=== PATIENT | female | born 1955 | race Caucasian/White ===

== ENCOUNTER 2018-05-20 15:21 | Outpatient (REF) | payer MEDICARE, SELFPAY ==
[2018-05-20 21:26] LABS: TSH 0.45 uIU/mL (0.358-3.74)
== END 2018-05-20 15:41 ==
LOC: NCHCN 15:21
PROVIDERS: PCP Internal Medicine; Visit Provider Internal Medicine
DX: E03.9 Hypothyroidism, unspecified (principal)
CPT/HCPCS: 84443

== ENCOUNTER 2018-09-11 18:49 | Outpatient (REF) | payer MEDICARE, SELFPAY ==
[2018-09-11 19:49] LABS: Anion Gap 10.6 mmol/L (3-11); BUN 18 mg/dL (7-18); CO2 26.4 mmol/L (21.0-32.0); CREATININE 1.22 mg/dL (0.55-1.02); Calcium 9.3 mg/dL (8.5-10.1); Chloride 98 mmol/L (98-107); Estimated GFR 44.23 (mL/min/1.73m2); Glucose 92 mg/dL (70-100); Potassium 4.5 mmol/L (3.5-5.1); Sodium 135 mmol/L (136-145)
== END 2018-09-11 19:09 ==
LOC: NCHCN 18:49
PROVIDERS: PCP Internal Medicine; Visit Provider Internal Medicine
DX: E87.5 Hyperkalemia (principal); E87.1 Hypo-osmolality and hyponatremia
CPT/HCPCS: 80048

== ENCOUNTER 2019-09-14 15:27 | Outpatient (REF) | payer MEDICARE, SELFPAY ==
[2019-09-14 19:40] LABS: Albumin 4.1 g/dL (3.4-5.0); Anion Gap 9.3 mmol/L (3-11); BUN 25 mg/dL (7-18); CO2 24.7 mmol/L (21.0-32.0); CREATININE 1.56 mg/dL (0.55-1.02); Calcium 8.9 mg/dL (8.5-10.1); Chloride 94 mmol/L (98-107); Estimated GFR 33.21 (mL/min/1.73m2); Glucose 140 mg/dL (74-106); PHOSPHORUS 4.4 mg/dL (2.6-4.7); Potassium 4.4 mmol/L (3.5-5.1); Sodium 128 mmol/L (136-145)
[2019-09-14 19:50] LABS: PROTEIN 9.1 mg/dL
[2019-09-14 19:56] LABS: COMMENT (LAB VIEW ONLY) 68.22 mg/dL; Prot/Crea Ur Ratio 0.13
[2019-09-16 14:08] LABS: Albumin 62.3 % (55.8-66.1); Total Protein 6.9 g/dL (6.3-8.2)
== END 2019-09-14 15:47 ==
LOC: NCHCN 15:27
PROVIDERS: PCP Internal Medicine; Visit Provider Internal Medicine
DX: N18.3 Chronic kidney disease, stage 3 (moderate) (principal)
CPT/HCPCS: 80069; 84156; 84166; 86335; 82565; 84165

== ENCOUNTER 2019-09-16 16:06 | Outpatient (REF) | payer MEDICARE, SELFPAY ==
[2019-09-20 16:03] LABS: Albumin, Urine % 12.6 % ((See Note)); Globulins, Urine % 87.4 %; Immunotyping, Urine (See Note); Total Protein Urine 10 mg/dL (See Note)
== END 2019-09-16 16:26 ==
LOC: LBN 16:06
PROVIDERS: PCP Internal Medicine; Visit Provider Internal Medicine
DX: N18.3 Chronic kidney disease, stage 3 (moderate) (principal)
CPT/HCPCS: 84156; 84166; 86335

== ENCOUNTER 2019-12-27 09:10 | Outpatient (REF) | payer MEDICARE, SELFPAY ==
[2019-12-30 19:35] LABS: Patient Race White; SARS-CoV-2 RNA Undetected (Undetected); SARS-CoV-2 Specimen Source Nasal
== END 2019-12-27 09:30 ==
LOC: NCHCN 09:10
PROVIDERS: PCP Internal Medicine; Visit Provider Internal Medicine
DX: Z20.828 Contact with and (suspected) exposure to other viral communicable diseases (principal)
CPT/HCPCS: U0003

== ENCOUNTER 2020-01-19 19:47 | Outpatient (REF) | payer MEDICARE, SELFPAY ==
[2020-01-24 21:16] LABS: Patient Race White; SARS-CoV-2 RNA Undetected (Undetected); SARS-CoV-2 Specimen Source Nasal
== END 2020-01-19 20:07 ==
LOC: NCHCN 19:47
PROVIDERS: PCP Internal Medicine; Visit Provider Internal Medicine
DX: J01.10 Acute frontal sinusitis, unspecified (principal); Z20.828 Contact with and (suspected) exposure to other viral communicable diseases
CPT/HCPCS: U0003

== ENCOUNTER 2020-02-15 20:07 | Outpatient (REF) | payer MEDICARE, SELFPAY ==
[2020-02-15 19:30] LABS: HCT 45.4 % (36.0-46.0); HGB 14.5 g/dL (11.2-15.7); MCH 31.5 pg (27.0-33.0); MCHC 31.9 % (32.0-36.0); MCV 98.5 fL (80-95); MPV 11.2 fL (8.0-11.0); Platelet Count 241 10^3/uL (130-400); RBC 4.61 10^6/uL (3.93-5.22); RDW 13.5 % (11.7-14.6); RDW-SD 49.1 fL; WBC 4.29 10^3/uL (4.4-10.8)
[2020-02-15 19:47] LABS: ALT 11 U/L (14-59); AST 15 U/L (15-37); Albumin 4.1 g/dL (3.4-5.0); Alkaline Phosphatase 62 U/L (46-116); Anion Gap 9.5 mmol/L (3-11); BUN 17 mg/dL (7-18); Bilirubin, Total 0.8 mg/dL (0.2-1.0); CO2 26.5 mmol/L (21.0-32.0); Calcium 9.1 mg/dL (8.5-10.1); Chloride 102 mmol/L (98-107); Estimated GFR 37.62 (mL/min/1.73m2); Ferritin 29 ng/mL (8-252); Glucose 108 mg/dL (74-106); Potassium 4.1 mmol/L (3.5-5.1); Sodium 138 mmol/L (136-145); Total Protein 6.7 g/dL (6.4-8.2)
== END 2020-02-15 20:27 ==
LOC: NCHCN 20:07
PROVIDERS: PCP Internal Medicine; Visit Provider Internal Medicine
DX: G25.81 Restless legs syndrome (principal)
CPT/HCPCS: 80053; 85027; 82728

== ENCOUNTER 2020-04-07 17:39 | Outpatient (REF) | payer MEDICARE, SELFPAY ==
[2020-04-07 16:13] LABS: Anion Gap 10.2 mmol/L (3-11); BUN 18 mg/dL (7-18); CO2 27.8 mmol/L (21.0-32.0); CREATININE 1.38 mg/dL (0.55-1.02); Calcium 8.8 mg/dL (8.5-10.1); Chloride 98 mmol/L (98-107); Estimated GFR 38.14 (mL/min/1.73m2); Glucose 109 mg/dL (74-106); Potassium 4.2 mmol/L (3.5-5.1); Sodium 136 mmol/L (136-145)
[2020-04-07 16:16] LABS: INR 2.4 (0.9-1.1); Prothrombin Time 23.5 sec (9.3-11.0)
== END 2020-04-07 17:59 ==
LOC: NCHCN 17:39
PROVIDERS: PCP Internal Medicine; Visit Provider Internal Medicine
DX: I24.0 Acute coronary thrombosis not resulting in myocardial infarction (principal); Z79.01 Long term (current) use of anticoagulants; I51.3 Intracardiac thrombosis, not elsewhere classified
CPT/HCPCS: 80048; 85610

== ENCOUNTER 2020-04-19 14:56 | Outpatient (REF) | payer MEDICARE, SELFPAY ==
--- OUTSIDE RECORDS SUMMARY | 2020-04-19 14:59 | XMS_ITS ---
:1955 Author Care Team Providers Name Role Phone TITA JUAN MD Primary Care Provider [phone] SUSAN KELLY MD General Surgeon [phone] Allergies Code Code System Name Reaction Severity Status Onset 2670 RxNorm Codeine Itching ? Active ? Timentin ? ? Active ? Medications Name Status Start Date Stop Date ? ? Aspir-81 Active ? Not available celecoxib 200 mg capsule Active ? Not kaitlin ilable Entresto 49 mg-51 mg tablet Active ? Not available erythromycin 5 mg/gram (0.5 %) Completed ? 0 05/12/2018 eye ointment furosemide 20 mg tablet Active ? Not avai lable gabapentin 300 mg capsule Completed ? 2019 hydrocodone 5 mg-acetaminophen Active ? N ot available 325 mg tablet hydromorphone 2 mg tablet Completed ? 2019 levothyroxine 125 mcg tablet Active ? Not available losartan 50 mg tablet Completed 06/16/2013 05/07/2016 1 (one) Tablet Tablet: qd - daily metoprolol succinate ER 100 mg Active ? N ot available tablet,extended release 24 hr nitrofurantoin macrocrystal 100 Completed ? 05/12/2018 mg capsule omeprazole 20 mg capsule,delayed Completed ? 05/17/2019 release oxybutynin chloride ER 10 mg Completed ? 04/2019 tablet,extended release 24 hr Pacerone 400 mg tablet Active ? Not avail able prednisone 20 mg tablet Completed ? 05/12/19 19 simvastatin 20 mg tablet Active ? Not kaitlin ilable spironolactone 25 mg tablet Active ? Not available sulfamethoxazole 800 Completed ? 05/12/2018 mg-trimethoprim 160 mg tablet sumatriptan 100 mg tablet Active ? Not av ailable Problems Name Status Onset Date Source ? History of Radiofrequency Ablation Active 09/15/2015 ? Operation for Arrhythmia Replacement of Left Knee Joint Active 11/15/2017 ? Cardiac Pacemaker Procedure Active 04/27/2018 ? Hypothyroidism Active 05/12/2018 ? Migraine Active 05/12/2018 ? Cardiomyopathy Active 05/12/2018 ? History of Malignant Lymphoma Active 05/12/2018 ? Long-term Drug Therapy Active ? History Gynecologic Examination Unknown ? History Procedures Date Name Performed by ? 02/24/2019 Colonoscopy Information not avai lable Notes: diverticulosis. 08/18/2018 Orthopedic Surgery Information not avai lable Notes: right knee replacement 04/27/2018 Pacemaker/Defibrillator Information not available 11/15/2017 Orthopedic Surgery Information not avai lable Notes: Left knee replacement 03/17/2005 Orthopedic Surgery Information not avai lable Notes: broke hand had pins put in 03/17/2003 Laparoscopy Diagnostic Information not a vailable ? Heart Surgery Information not avai lable Notes: Ablation 10/02/2015, Cardiac ca th 07/2015 ? Tubal Ligation Information not avai lable Notes: 1976 05/14/2018 MAMMO, Screening, Tomosynthesis, [facility] Radiology (Internal) Bilateral [address] [place] [address] (Work Place) 05/17/2019 MAMMO, Screening, Tomosynthesis, [facility] Radiology (Internal) Bilateral [address] [place] [address] (Work Place) Results Lab Results Date Name Specimen Result Interpretation Description Value Range Status Address ? 05/17/2019 Pap Test, MISC ? Hpv see ? Final [facility], report [facility] (Interna l): [address] ? ? MISC ? Pap see ? Final [facility] report [facility] (Internal) : [address] ? ? MISC ? Report (see ? Final [facility] ntry below) [facility] (Internal) : [address] Past Encounters 05/17/2019 Screening Mammography; Routine Gynecolog ic Examination Done Renetta Foreman MD: [address] [place] [phone], Ph. Social History Tobacco Smoking Status Never Smoker Vaccine List Vaccine Type influenza, seasonal, injectable 12/15/2006 rubella Td (adult), adsorbed 02/05/2006 Plan of Care Reminders Provider Appointments None ? ? recorded. Lab None ? ? recorded. Referral None ? ? recorded. Procedures None ? ? recorded. Surgeries None ? ? recorded. Imaging None ? ? recorded. Vitals 05/17/2019 01:30PM [facility] 20 Height Weight BMI Blood Pressure 170.18 cm 107.05 kg 37 kg/m2 110/60 mm[Hg] 05/14/2018 03:40PM [facility] 20 Height Weight BMI Blood Pressure 170.18 cm 99.74 kg 34.4 kg/m2 104/60 mm[Hg] 05/09/2017 Height Weight Blood Pressure 170.82 cm 105.19 kg 120/68 mm[Hg] 05/07/2016 Height Weight Blood Pressure 170.18 cm 98.38 kg 96/46 mm[Hg] 05/22/2015 Height Weight Blood Pressure 168.91 cm 100.52 kg 108/78 mm[Hg] 05/20/2014 Height Weight Blood Pressure 170.82 cm 103.46 kg 104/58 mm[Hg] 05/11/2013 Height Weight Blood Pressure 172.72 cm 103.56 kg 112/60 mm[Hg] 05/06/2012 Height Weight Blood Pressure 172.72 cm 104.05 kg 112/64 mm[Hg] 05/02/2011 Weight Blood Pressure 102.06 kg 122/64 mm[Hg] 04/19/2010 Weight Blood Pressure 102.51 kg 110/70 mm[Hg] 04/13/2009 Weight Blood Pressure 97.98 kg 122/70 mm[Hg] 04/07/2008 Weight Blood Pressure 98.88 kg 100/66 mm[Hg] 02/11/2007 Weight Blood Pressure 93.44 kg 122/70 mm[Hg] 02/05/2006 Height Weight Blood Pressure 172.72 cm 97.98 kg 122/70 mm[Hg] 02/05/2005 Height Weight Blood Pressure 172.72 cm 90.72 kg 98/60 mm[Hg] 02/01/2004 Height Weight Blood Pressure 172.72 cm 76.66 kg 116/56 mm[Hg]
[2020-04-19 16:52] LABS: Prothrombin Time 56.5 sec (9.3-11.0)
[2020-04-19 16:58] LABS: INR 5.9 (0.9-1.1)
== END 2020-04-19 14:57 | disposition home or self-care (01) ==
LOC: NCHCN 14:56
PROVIDERS: PCP Internal Medicine; Visit Provider Internal Medicine
DX: Z79.01 Long term (current) use of anticoagulants (principal); I51.3 Intracardiac thrombosis, not elsewhere classified
CPT/HCPCS: 85610

== ENCOUNTER 2020-04-21 14:38 | Outpatient (REF) | payer MEDICARE, SELFPAY ==
[2020-04-21 16:41] LABS: INR 5.7 (0.9-1.1)
[2020-04-21 19:43] LABS: Albumin 3.7 g/dL (3.4-5.0); Anion Gap 11.2 mmol/L (3-11); BUN 13 mg/dL (7-18); CO2 27.8 mmol/L (21.0-32.0); CREATININE 1.3 mg/dL (0.55-1.02); Calcium 9.2 mg/dL (8.5-10.1); Chloride 98 mmol/L (98-107); Estimated GFR 40.86 (mL/min/1.73m2); Glucose 110 mg/dL (74-106); PHOSPHORUS 4.3 mg/dL (2.6-4.7); Potassium 3.8 mmol/L (3.5-5.1); Sodium 137 mmol/L (136-145)
== END 2020-04-21 14:39 | disposition home or self-care (01) ==
LOC: NCHCN 14:38
PROVIDERS: PCP Internal Medicine; Visit Provider Internal Medicine
DX: N18.30 Chronic kidney disease, stage 3 unspecified (principal); E03.9 Hypothyroidism, unspecified; Z79.01 Long term (current) use of anticoagulants; I51.3 Intracardiac thrombosis, not elsewhere classified; E11.22 Type 2 diabetes mellitus with diabetic chronic kidney disease
CPT/HCPCS: 80053; 80061; 80069; 83036; 84443; 85025; 85610

== ENCOUNTER 2020-04-26 08:58 | Outpatient (REF) | payer MEDICARE, SELFPAY ==
[2020-04-26 15:29] LABS: Prothrombin Time 18.4 sec (9.3-11.0)
[2020-04-26 15:35] LABS: INR 1.9 (0.9-1.1)
== END 2020-04-26 08:59 | disposition home or self-care (01) ==
LOC: NCHCN 08:58
PROVIDERS: PCP Internal Medicine; Visit Provider Internal Medicine
DX: I51.3 Intracardiac thrombosis, not elsewhere classified (principal); Z79.01 Long term (current) use of anticoagulants; I24.0 Acute coronary thrombosis not resulting in myocardial infarction
CPT/HCPCS: 85610

== ENCOUNTER 2020-05-08 15:33 | Outpatient (REF) | payer MEDICARE, SELFPAY ==
[2020-05-08 15:35] LABS: INR 1.3 (0.9-1.1); Prothrombin Time 12.7 sec (9.3-11.0)
[2020-05-08 15:36] LABS: Albumin 3.9 g/dL (3.4-5.0); Anion Gap 9.5 mmol/L (3-11); BUN 23 mg/dL (7-18); CO2 29.5 mmol/L (21.0-32.0); CREATININE 1.5 mg/dL (0.55-1.02); Calcium 9.1 mg/dL (8.5-10.1); Chloride 98 mmol/L (98-107); Estimated GFR 34.64 (mL/min/1.73m2); Glucose 121 mg/dL (74-106); NT-proBNP 4409 pg/mL (<300); PHOSPHORUS 4.3 mg/dL (2.6-4.7); Potassium 3.8 mmol/L (3.5-5.1); Sodium 137 mmol/L (136-145)
== END 2020-05-08 15:34 | disposition home or self-care (01) ==
LOC: NCHCN 15:33
PROVIDERS: PCP Internal Medicine; Visit Provider Internal Medicine
DX: I50.9 Heart failure, unspecified (principal)
CPT/HCPCS: 80069; 83735; 83880; 85610

== ENCOUNTER 2020-08-03 13:22 | Outpatient (REF) | payer MEDICARE, SELFPAY ==
[2020-08-03 14:56] LABS: HCT 42.8 % (36.0-46.0); HGB 13.8 g/dL (11.2-15.7); MCH 31.6 pg (27.0-33.0); MCHC 32.2 % (32.0-36.0); MCV 97.9 fL (80-95); MPV 11.3 fL (8.0-11.0); Platelet Count 225 10^3/uL (130-400); RBC 4.37 10^6/uL (3.93-5.22); RDW 15.9 % (11.7-14.6); RDW-SD 57.1 fL; WBC 6.24 10^3/uL (4.4-10.8)
[2020-08-03 15:11] LABS: ALT 11 U/L (14-59); AST 17 U/L (15-37); Albumin 4.4 g/dL (3.4-5.0); Alkaline Phosphatase 94 U/L (46-116); Anion Gap 11.1 mmol/L (3-11); BUN 29 mg/dL (7-18); Bilirubin, Total 1.2 mg/dL (0.2-1.0); CO2 28.9 mmol/L (21.0-32.0); CREATININE 1.7 mg/dL (0.55-1.02); Calcium 9.3 mg/dL (8.5-10.1); Chloride 100 mmol/L (98-107); Estimated GFR 29.98 (mL/min/1.73m2); Glucose 101 mg/dL (74-106); Potassium 3.8 mmol/L (3.5-5.1); Sodium 140 mmol/L (136-145); Total Protein 7.1 g/dL (6.4-8.2)
== END 2020-08-03 13:23 | disposition home or self-care (01) ==
LOC: NCHCN 13:22
PROVIDERS: PCP Internal Medicine; Visit Provider Internal Medicine
DX: G43.909 Migraine, unspecified, not intractable, without status migrainosus (principal); I42.9 Cardiomyopathy, unspecified; Z79.01 Long term (current) use of anticoagulants
CPT/HCPCS: 80053; 85027

== ENCOUNTER 2023-04-22 19:39 | Outpatient (REF) | payer MEDICARE, SELFPAY ==
[2023-04-25 15:35] LABS: HSV 1 DNA Result Negative (Negative); HSV 2 DNA Result Negative (Negative)
== END 2023-04-22 19:40 | disposition home or self-care (01) ==
LOC: NCHCN 19:39
PROVIDERS: PCP Internal Medicine; Visit Provider Nurse Practitioner Family
DX: K14.9 Disease of tongue, unspecified (principal)
CPT/HCPCS: 87529; 87070; 87205